=== PATIENT | male | born 1940 | race Caucasian/White ===

== ENCOUNTER → 2016-11-13 | Outpatient (CLI) | payer MEDICARE, OTHER ==
[2016-11-13 08:38] LABS: ABSOLUTE EOSINOPHILS # (AUTO) 0.3 10^3/uL (0.0-0.6); ABSOLUTE LYMPHOCYTES (AUTO) 1.4 10^3/uL (0.5-4.7); ABSOLUTE MONOCYTES (AUTO) 0.8 10^3/uL (0.1-1.4); ABSOLUTE NEUT (AUTO) 4.8 10^3/uL (1.7-8.2); BASOPHILS % (AUTO) 0.5 % (0-2); EOSINOPHILS % (AUTO) 4.4 % (0-6); HEMATOCRIT 38.2 % (37.9-51.0); HEMOGLOBIN 12.9 g/dL (13.5-17.0); HGB HCT DIFFERENCE 0.5; LYMPHOCYTES % (AUTO) 19.4 % (13-45); MEAN CORPUSCULAR HEMOGLOBIN 33.7 pg (27.0-33.4); MEAN CORPUSCULAR HGB CONC 33.8 g/dL (32.0-36.0); MEAN CORPUSCULAR VOLUME 100 fl (80-97); MONOCYTES % (AUTO) 10.2 % (3-13); RED BLOOD COUNT 3.84 10^6/uL (4.35-5.55); RED CELL DISTRIBUTION WIDTH 15.2 % (11.5-14.0); SEGMENTED NEUTROPHILS % (AUTO) 65.5 % (42-78); WHITE BLOOD COUNT 7.4 10^3/uL (4.0-10.5)
[2016-11-13 08:42] LABS: APPEARANCE,URINE CLEAR; BILIRUBIN,URINE NEGATIVE (NEGATIVE); GLUCOSE, URINE NEGATIVE (NEGATIVE); KETONES,URINE NEGATIVE (NEGATIVE); LEUKOCYTE ESTERASE,URINE NEGATIVE (NEGATIVE); NITRITE,URINE NEGATIVE (NEGATIVE); PROTEIN,URINE NEGATIVE (NEGATIVE); URINE SPECIFIC GRAVITY 1.019; UROBILINOGEN,URINE NEGATIVE mg/dL (<2.0)
[2016-11-13 08:59] LABS: ALANINE AMINOTRANSFERASE 22 U/L (21-72); ALKALINE PHOSPHATASE 86 U/L (38-126); ANION GAP 13 (5-19); ASPARTATE AMINO TRANSFERASE 22 U/L (17-59); BILIRUBIN,TOTAL 0.8 mg/dL (0.2-1.3); BLOOD UREA NITROGEN 21 mg/dL (7-20); CALCIUM 9.5 mg/dL (8.4-10.2); CARBON DIOXIDE 26 mmol/L (22-30); CHLORIDE 106 mmol/L (98-107); CREATININE RESULT 0.95 mg/dL (0.52-1.25); GLUCOSE 89 mg/dL (75-110); MAGNESIUM 1.8 mg/dL (1.6-2.3); POTASSIUM 4.7 mmol/L (3.6-5.0); TOTAL PROTEIN 6.8 g/dL (6.3-8.2)
== END ==
LOC: OD 08:03
PROVIDERS: ATTEND Internal Medicine Cardiovascular Disease
DX: Z79.01 Long term (current) use of anticoagulants (principal); Z79.899 Other long term (current) drug therapy
CPT/HCPCS: 36415; 80048; 80076; 81001; 82272; 83735; 85025; 85730

== ENCOUNTER → 2017-02-12 | Outpatient (CLI) | payer MEDICARE, OTHER ==
[2017-02-12 08:43] LABS: APPEARANCE,URINE CLEAR; BILIRUBIN,URINE NEGATIVE (NEGATIVE); GLUCOSE, URINE NEGATIVE (NEGATIVE); KETONES,URINE NEGATIVE (NEGATIVE); LEUKOCYTE ESTERASE,URINE NEGATIVE (NEGATIVE); NITRITE,URINE NEGATIVE (NEGATIVE); PROTEIN,URINE NEGATIVE (NEGATIVE); URINE SPECIFIC GRAVITY 1.017; UROBILINOGEN,URINE NEGATIVE mg/dL (<2.0)
[2017-02-12 08:43] LABS: ABSOLUTE BASOPHILS # (AUTO) 0.1 10^3/uL (0.0-0.2); ABSOLUTE EOSINOPHILS # (AUTO) 0.3 10^3/uL (0.0-0.6); ABSOLUTE LYMPHOCYTES (AUTO) 1.3 10^3/uL (0.5-4.7); ABSOLUTE MONOCYTES (AUTO) 0.6 10^3/uL (0.1-1.4); ABSOLUTE NEUT (AUTO) 3.7 10^3/uL (1.7-8.2); BASOPHILS % (AUTO) 1.1 % (0-2); EOSINOPHILS % (AUTO) 4.3 % (0-6); HEMOGLOBIN 14.2 g/dL (13.5-17.0); HGB HCT DIFFERENCE 0.6; LYMPHOCYTES % (AUTO) 22.3 % (13-45); MEAN CORPUSCULAR HEMOGLOBIN 33.5 pg (27.0-33.4); MEAN CORPUSCULAR HGB CONC 33.8 g/dL (32.0-36.0); MEAN CORPUSCULAR VOLUME 99 fl (80-97); MONOCYTES % (AUTO) 10.2 % (3-13); RED BLOOD COUNT 4.24 10^6/uL (4.35-5.55); RED CELL DISTRIBUTION WIDTH 15.1 % (11.5-14.0); SEGMENTED NEUTROPHILS % (AUTO) 62.1 % (42-78); WHITE BLOOD COUNT 5.9 10^3/uL (4.0-10.5)
[2017-02-12 09:15] LABS: ALANINE AMINOTRANSFERASE 17 U/L (21-72); ALBUMIN 4.1 g/dL (3.5-5.0); ALKALINE PHOSPHATASE 95 U/L (38-126); ANION GAP 9 (5-19); ASPARTATE AMINO TRANSFERASE 21 U/L (17-59); BILIRUBIN,DIRECT 0.5 mg/dL (0.0-0.4); BILIRUBIN,TOTAL 0.9 mg/dL (0.2-1.3); BLOOD UREA NITROGEN 20 mg/dL (7-20); CARBON DIOXIDE 28 mmol/L (22-30); CHLORIDE 104 mmol/L (98-107); CREATININE RESULT 1.12 mg/dL (0.52-1.25); GLUCOSE 105 mg/dL (75-110); MAGNESIUM 1.9 mg/dL (1.6-2.3); POTASSIUM 4.7 mmol/L (3.6-5.0); SODIUM 140.6 mmol/L (137-145); TOTAL PROTEIN 7.1 g/dL (6.3-8.2)
== END ==
LOC: OD 07:13
PROVIDERS: ATTEND Internal Medicine Cardiovascular Disease
DX: Z51.81 Encounter for therapeutic drug level monitoring (principal); Z79.01 Long term (current) use of anticoagulants; Z79.899 Other long term (current) drug therapy
CPT/HCPCS: 36415; 80048; 80076; 81001; 82272; 83735; 85025; 85730

== ENCOUNTER → 2017-05-28 | Outpatient (CLI) | payer MEDICARE, OTHER ==
[2017-05-28 08:11] LABS: ABSOLUTE EOSINOPHILS # (AUTO) 0.2 10^3/uL (0.0-0.6); ABSOLUTE LYMPHOCYTES (AUTO) 1.1 10^3/uL (0.5-4.7); ABSOLUTE MONOCYTES (AUTO) 0.5 10^3/uL (0.1-1.4); ABSOLUTE NEUT (AUTO) 3.5 10^3/uL (1.7-8.2); BASOPHILS % (AUTO) 0.9 % (0-2); EOSINOPHILS % (AUTO) 4.5 % (0-6); HEMATOCRIT 41.9 % (37.9-51.0); HEMOGLOBIN 14.3 g/dL (13.5-17.0); LYMPHOCYTES % (AUTO) 19.8 % (13-45); MEAN CORPUSCULAR HEMOGLOBIN 34.5 pg (27.0-33.4); MEAN CORPUSCULAR HGB CONC 34.1 g/dL (32.0-36.0); MEAN CORPUSCULAR VOLUME 101 fl (80-97); MONOCYTES % (AUTO) 8.8 % (3-13); RED BLOOD COUNT 4.14 10^6/uL (4.35-5.55); RED CELL DISTRIBUTION WIDTH 15.2 % (11.5-14.0); WHITE BLOOD COUNT 5.4 10^3/uL (4.0-10.5)
[2017-05-28 08:45] LABS: APPEARANCE,URINE CLEAR; BILIRUBIN,URINE NEGATIVE (NEGATIVE); GLUCOSE, URINE NEGATIVE (NEGATIVE); KETONES,URINE NEGATIVE (NEGATIVE); LEUKOCYTE ESTERASE,URINE NEGATIVE (NEGATIVE); NITRITE,URINE NEGATIVE (NEGATIVE); PROTEIN,URINE NEGATIVE (NEGATIVE); URINE SPECIFIC GRAVITY 1.012; UROBILINOGEN,URINE NEGATIVE mg/dL (<2.0)
[2017-05-28 08:48] LABS: ALANINE AMINOTRANSFERASE 46 U/L (21-72); ALKALINE PHOSPHATASE 102 U/L (38-126); ANION GAP 8 (5-19); ASPARTATE AMINO TRANSFERASE 25 U/L (17-59); BILIRUBIN,DIRECT 0.4 mg/dL (0.0-0.4); BILIRUBIN,TOTAL 0.5 mg/dL (0.2-1.3); BLOOD UREA NITROGEN 12 mg/dL (7-20); CALCIUM 9.7 mg/dL (8.4-10.2); CARBON DIOXIDE 24 mmol/L (22-30); CHLORIDE 109 mmol/L (98-107); GLUCOSE 95 mg/dL (75-110); POTASSIUM 4.3 mmol/L (3.6-5.0); SODIUM 140.6 mmol/L (137-145); TOTAL PROTEIN 6.9 g/dL (6.3-8.2)
== END ==
LOC: OD 07:21
PROVIDERS: ATTEND Internal Medicine Cardiovascular Disease
DX: Z79.899 Other long term (current) drug therapy (principal); Z79.01 Long term (current) use of anticoagulants
CPT/HCPCS: 36415; 80048; 80076; 81001; 82272; 83735; 85025; 85730

== ENCOUNTER 2017-08-23 15:15 | Emergency (ER) | payer MEDICARE, OTHER ==
[2017-08-23] MEDS ORDERED: CALCIUM GLUCONATE 1000 MG/10 ML INJ IV ONE ×2 (15:27→15:48)
[2017-08-23] MEDS ORDERED: NORMAL SALINE 1000 ML 1,000 ML IV ONE (15:32)
[2017-08-23] MEDS ORDERED: MIDAZOLAM HCL 100 ML IV ONE (15:34)
[2017-08-23] MEDS ORDERED: ATROPINE SULFATE INJ 1 MG/10 ML DISP.SYRIN IV ONE ×2 (15:46→19:34)
[2017-08-23 15:55] LABS: ABSOLUTE LYMPHOCYTES (AUTO) 2.5 10^3/uL (0.5-4.7); ABSOLUTE MONOCYTES (AUTO) 0.5 10^3/uL (0.1-1.4); ABSOLUTE NEUT (AUTO) 5.9 10^3/uL (1.7-8.2); BASOPHILS % (AUTO) 0.4 % (0-2); HEMATOCRIT 35.1 % (37.9-51.0); HEMOGLOBIN 11.6 g/dL (13.5-17.0); HGB HCT DIFFERENCE -0.3; LYMPHOCYTES % (AUTO) 27.9 % (13-45); MEAN CORPUSCULAR HEMOGLOBIN 34.7 pg (27.0-33.4); MEAN CORPUSCULAR HGB CONC 32.9 g/dL (32.0-36.0); MEAN CORPUSCULAR VOLUME 105 fl (80-97); MONOCYTES % (AUTO) 5.8 % (3-13); RED BLOOD COUNT 3.33 10^6/uL (4.35-5.55); RED CELL DISTRIBUTION WIDTH 15.1 % (11.5-14.0); SEGMENTED NEUTROPHILS % (AUTO) 65.9 % (42-78); VENOUS BLOOD BASE EXCESS -15.4 mmol/L
--- NOTE | 2017-08-23 16:00 | RADIOLOGY REPORT (SQ) ---
EXAM DESCRIPTION: CHEST SINGLE VIEW COMPLETED DATE/TIME: 08/23/2017 3:45 pm REASON FOR STUDY: post arrest COMPARISON: None. EXAM PARAMETERS: NUMBER OF VIEWS: One view. TECHNIQUE: Single frontal radiographic view of the chest acquired. RADIATION DOSE: NA LIMITATIONS: None. FINDINGS: LUNGS AND PLEURA: The lungs are hyperexpanded. There is vascular congestion with chronic interstitial changes. There is no localized infiltrate or effusion MEDIASTINUM AND HILAR STRUCTURES: No masses. Contour normal. HEART AND VASCULAR STRUCTURES: Heart normal in size. Normal vasculature. BONES: No acute findings. HARDWARE: An endotracheal tube has its tip 4 cm above the ander. OTHER: No other significant finding. IMPRESSION: Chronic lung changes with no acute cardiopulmonary disease. Endotracheal tube placement . TECHNICAL DOCUMENTATION: JOB ID: [id number] [employer]- All Rights Reserved
[2017-08-23 16:01] LABS: VENOUS BLOOD PCO2 75.2 mmHg (35-63); VENOUS BLOOD PH 6.97 (7.30-7.42)
[2017-08-23] MEDS ORDERED: SODIUM BICARBONATE 8.4% INJ 50 MEQ/50 ML DISP.SYRIN ONE ×2 (16:02→19:34)
[2017-08-23 16:06] LABS: PROTHROMBIN TIME 19.1 SEC (11.4-15.4)
[2017-08-23 16:13] LABS: ALANINE AMINOTRANSFERASE 38 U/L (21-72); ALBUMIN 2.9 g/dL (3.5-5.0); ALKALINE PHOSPHATASE 79 U/L (38-126); BILIRUBIN,DIRECT 0.3 mg/dL (0.0-0.4); BILIRUBIN,TOTAL 0.5 mg/dL (0.2-1.3); BLOOD UREA NITROGEN 32 mg/dL (7-20); CALCIUM 9.2 mg/dL (8.4-10.2); CREATINE KINASE 106 U/L (55-170); CREATININE RESULT 1.68 mg/dL (0.52-1.25); GLUCOSE 178 mg/dL (75-110); TOTAL PROTEIN 5.2 g/dL (6.3-8.2)
--- NOTE | 2017-08-23 16:14 | ER Document Report ---
ED Resuscitation - General Stated Complaint: CARDIAC ARREST Time Seen by Provider: 08/23/17 15:33 Information source: Emergency Med Personnel Notes: 76-year-old male who presented with EMS status post cardiac arrest. Supposedly the patient is in the bathroom and the family heard a "thump". Supposedly the brother started CPR. EMS states when they arrived they provided CPR with return of spontaneous circulation. They thought that the patient had decreased breath sounds bilaterally, right greater than left so they started the patient on a duo nebulizer. Patient does have a history of COPD. They state that in route the patient Would have posturing with loss of consciousness and altered mental status. They state at one point during the transport the patient was oriented 4. They stated that the patient then again began posturing. CPS was not a progress when they arrived. When they arrived it was found that the patient had no pulses and compressions were resumed. TRAVEL OUTSIDE OF THE [place] IN LAST 30 DAYS: No - HPI Witnessed arrest: Yes Bystander CPR?: Yes Onset: Just prior to arrival Quality of pain: No pain Severity: Severe Pain Level: Denies Symptoms prior to event: Unknown Associated Symptoms: Other - See above - Paramedics initial findings Unresponsive: Completely Respirations: Agonal - Pre-hospital treatment Treatment: Bag-valve mask, CPR/thumper, Oxygen - Related Data Allergies/Adverse Reactions: hydrochlorothiazide [Hydrochlorothiazide] Allergy (Unverified 02/09/12 17:50) Past Medical History - General Information source: Emergency Med Personnel Cannot obtain history due to: Unstable vital signs - Social History Smoking Status: Unknown if Ever Smoked Cigarette use (# per day): No Chew tobacco use (# tins/day): No Smoking Education Provided: No Frequency of alcohol use: None Drug Abuse: None Family History: Reviewed & Not Pertinent - Past Medical History Cardiac Medical History: Reports: Hx Hypertension Denies: Hx Coronary Artery Disease, Hx Heart Attack Pulmonary Medical History: Reports: Hx COPD Denies: Hx Asthma, Hx Bronchitis, Hx Pneumonia Neurological Medical History: Denies: Hx Cerebrovascular Accident, Hx Seizures Musculoskeltal Medical History: Denies Hx Arthritis Past Surgical History: Denies: Hx Pacemaker - Immunizations Hx Diphtheria, Pertussis, Tetanus Vaccination: Yes Review of Systems - Review of Systems -: Yes ROS unobtainable due to patient's medical condition Physical Exam - Vital signs Notes: Reviewed vital signs and nursing note as charted by RN. CONSTITUTIONAL: Patient unresponsive with agonal respirations HEAD: Normocephalic; atraumatic EYES: Pupils unreactive bilaterally ENT: Moist mucous membranes NECK: Supple; no cervical lymphadenopathy, no masses CARDS: No pulses palpated initially RESP: Agonal respirations. Bilateral breath sounds on auscultation ABD/GI: Normal bowel sounds; non-distended; soft, palpable aorta BACK: The back appears normal EXT: No edema SKIN: Pale with some cyanosis around the neck NEURO: Unresponsive without purposeful movement Course - Re-evaluation Re-evalutation: CPR was started initially with epinephrine, bicarbonate, and calcium. Return of spontaneous circulation was obtained. Patient was then intubated. X-ray of the chest showed good tube placement with no obvious pneumothoraces or tension present. Patient slowly tracked down from a heart rate in the 70s with a stable blood pressure down to a heart rate in the 20s. Patient subsequently lost pulses once again. Patient was resuscitated again with epinephrine and atropine. Epinephrine drip was started. Another amp of bicarb has been given. Another amp of calcium was provided. Patient expeditiously taken to CT scan and back. No obvious intracranial bleed present. 08/23/17 16:35 Patient had another episode where he became bradycardic with loss of pulses. Patient has received multiple rounds of calcium, bicarbonate, atropine, and epinephrine with an epinephrine drip. After return of spontaneous circulation once again the patient started bradycardic down again to around 18. No blood pressure palpated. Code was called at 1627. - Laboratory Result Diagrams: 08/23/17 15:35 08/23/17 15:35 Laboratory results interpreted by me: 08/23/17 08/23/17 08/23/17 15:29 15:35 15:35 RBC 3.33 L Hgb 11.6 L Hct 35.1 L MCV 105 H MCH 34.7 H RDW 15.1 H PT 19.1 H VBG pH VBG pCO2 VBG HCO3 Potassium Carbon Dioxide Anion Gap BUN Creatinine Est GFR ( Amer) Est GFR (Non-Af Amer) Glucose POC Glucose 122 H Lactic Acid AST NT-Pro-B Natriuret Pep Total Protein Albumin 08/23/17 08/23/17 08/23/17 15:35 15:35 15:35 RBC Hgb Hct MCV MCH RDW PT VBG pH 6.97 L* VBG pCO2 75.2 H* VBG HCO3 17.0 L Potassium 5.4 H Carbon Dioxide 16 L Anion Gap 26 H BUN 32 H Creatinine 1.68 H Est GFR ( Amer) 48 L Est GFR (Non-Af Amer) 40 L Glucose 178 H POC Glucose Lactic Acid 11.9 H AST 95 H NT-Pro-B Natriuret Pep Total Protein 5.2 L Albumin 2.9 L 08/23/17 15:35 RBC Hgb Hct MCV MCH RDW PT VBG pH VBG pCO2 VBG HCO3 Potassium Carbon Dioxide Anion Gap BUN Creatinine Est GFR ( Amer) Est GFR (Non-Af Amer) Glucose POC Glucose Lactic Acid AST NT-Pro-B Natriuret Pep 658 H Total Protein Albumin Procedures - Intubation Orotracheal Airway evaluation: Normal anatomy Mallampati Classification: Class 2 Medications: Etomidate Intubation method: Orotracheal Blade type: Natasha Blade size: 4 Equipment used: Glidescope ETT size: 8.0 ETT secured at: Teeth ETT secured at (cm): 25 Breath Sounds after Intubation: Equal Post Intubation Xray: Yes Intubation Complications: No complications Critical Care Note - Critical Care Note Total time excluding time spent on procedures (mins): 85 Discharge - Discharge Clinical Impression: Cardiac arrest Condition: Critical Disposition:
[2017-08-23 16:19] LABS: ASPARTATE AMINO TRANSFERASE 95 U/L (17-59)
--- NOTE | 2017-08-23 16:21 | RADIOLOGY REPORT (SQ) ---
EXAM DESCRIPTION: CT HEAD WITHOUT COMPLETED DATE/TIME: 08/23/2017 4:07 pm REASON FOR STUDY: ALTERED COMPARISON: None. TECHNIQUE: Axial images acquired through the brain without intravenous contrast. Images reviewed wi th bone, brain and subdural windows. Images stored on PACS. All CT scanners at this facility use dose modulation, iterative reconstruction, and/or weight based d osing when appropriate to reduce radiation dose to as low as reasonably achievable (ALARA). [facility]: Dose Right [facility]: CareDose [facility]: Dose Right [facility]: Teradose 4D [facility]: [employer] RADIATION DOSE: Up-to-date CT equipment and radiation dose reduction techniques were employed. CTDIv ol: 64.6 mGy. DLP: 1397 mGy-cm. mGy. LIMITATIONS: Nonstandard radiographic positioning FINDINGS: VENTRICLES: Normal size and contour. CEREBRUM: No masses. No hemorrhage. No midline shift. No evidence for acute infarction. Normal gra y/white matter differentiation. No areas of low density in the white matter. CEREBELLUM: No masses. No hemorrhage. No alteration of density. No evidence for acute infarction. EXTRAAXIAL SPACES: No fluid collections. No masses. ORBITS AND GLOBE: No intra- or extraconal masses. Normal contour of globe without masses. CALVARIUM: No fracture. PARANASAL SINUSES: No fluid or mucosal thickening. SOFT TISSUES: No mass or hematoma. OTHER: No other significant finding. IMPRESSION: NORMAL BRAIN CT WITHOUT CONTRAST. EVIDENCE OF ACUTE STROKE: NO. COMMENT: Quality ID # [id number]: Final reports with documentation of one or more dose reduction techniques (e.g., Automated exposure control, adjustment of the mA and/or kV according to patient size, use of iterative reconstruction technique) TECHNICAL DOCUMENTATION: JOB ID: [id number]- All Rights Reserved
[2017-08-23 16:26] LABS: CREATINE KINASE MB < 0.22 ng/mL (<4.55)
[2017-08-23 16:27] LABS: CARBON DIOXIDE 16 mmol/L (22-30); CHLORIDE 102 mmol/L (98-107); POTASSIUM 5.4 mmol/L (3.6-5.0); SODIUM 143.6 mmol/L (137-145)
[2017-08-23 16:28] LABS: ANION GAP 26 (5-19); TROPONIN I 0.051 ng/mL
[2017-08-23] MEDS ORDERED: ROCURONIUM BROMIDE INJ 50 MG/5 ML VIAL IV ONE (19:33)
[2017-08-23] MEDS ORDERED: EPINEPHRINE INJ 1 MG/10 ML DISP.SYRIN ONE (19:34)
--- NOTE | 2017-08-24 09:26 | EKG REPORT ---
SEVERITY:- ABNORMAL ECG - SINUS BRADYCARDIA CANNOT R/O A FLUTTER, REC REPEAT EKG ABERRANT COMPLEX LEFT ATRIAL ABNORMALITY IVCD, CONSIDER ATYPICAL RBBB LATERAL INFARCT, AGE INDETERMINATE ST DEPRESSION, CONSIDER ISCHEMIA, INF LEADS : Confirmed by: Gregory Doyle 24-Aug-2017 09:26:19
== END 2017-08-23 17:00 | disposition expired ==
LOC: ER 15:15
DX: I46.9 Cardiac arrest, cause unspecified (principal); I10 Essential (primary) hypertension; J44.9 Chronic obstructive pulmonary disease, unspecified; Z88.8 Allergy status to other drugs, medicaments and biological substances
CPT/HCPCS: 93005; 99291; 99292; 92950; 96374; 36415; 87040; 82553; 82962; 82550; 85025; 85610; 80053; 84484; 82803; 83605; 83880; 71010; 70450; 93010; 36600; 31500; J0461; J3490 ×2; J0171